=== PATIENT | female | born 1930 | race Caucasian/White ===

== ENCOUNTER 2016-09-25 16:17 | Inpatient (IN) | payer OTHER ==
[2016-09-25] MEDS ORDERED: TYLENOL PO ONE (16:26)
[2016-09-25 16:42] LABS: URINE SOURCE CLEAN CATCH
--- NOTE | 2016-09-25 16:53 | EKG Report ---
Test Performed on : 09/25/2016 4:38:16 PM Test Reason : hx a fib Blood Pressure : / mmHG Vent. Rate : 129 BPM Atrial Rate : 117 BPM P-R Int : 000 ms QRS Dur : 100 ms QT Int : 308 ms P-R-T Axes : 000 008 078 degrees QTc Int : 451 ms Atrial fibrillation. with rapid ventricular response. with premature ventricular or aberrantly conduc piter complexes. Abnormal ECG When compared with ECG of 12-DEC-2013 12:22, Atrial fibrillation. has replaced Sinus rhythm. Vent. rate has increased BY 72 BPM QRS duration has increased Nonspecific T wave abnormality now evident in Lateral leads Unconfirmed Result
--- NOTE | 2016-09-25 16:54 | ED EKG INTERP ---
EKG Interpretation - EKG Time of EKG reading by physician:: 16:38 EKG Read and Signed by:: Sonido Francis EKG Interpretation (*Must complete 3 of following elements*): Abnormal Rate: 129 Rhythm: A-fib with rvr QRS: normal ST Wave: non-specific ST changes Attestation - Scribe Verification/Attestation Scribe:: Ashish Drake Acting as Scribe for:: Sonido Francis Scribe documention review:: This chart was documented by a scribe and accurately reflects the service the provider performed and the decisions made by the provider. Physician Attestation - Physician Attestation I, the provider, attest to the following statement:: Sonido Francis Physician documentation Attestation:: This documentation recorded by the scribe accurately reflects the service I personally performed and the decisions made by me.
[2016-09-25 17:35] LABS: MANUAL DIFF NEEDED? NO
[2016-09-25 17:36] LABS: BILIRUBIN URINE NEGATIVE (NEGATIVE); BLOOD URINE NEGATIVE (NEGATIVE); CLARITY CLEAR (CLEAR); COLOR YELLOW; GLUCOSE URINE NEGATIVE (NEGATIVE); LEUKOCYTES URINE TRACE (NEGATIVE); NITRITE URINE NEGATIVE (NEGATIVE); PROTEIN URINE NEGATIVE (NEGATIVE); UROBILINOGEN URINE NORMAL
[2016-09-25 17:37] LABS: URINE WBC <10 /HPF (<10)
--- NOTE | 2016-09-25 17:37 | PROVIDER DOCUMENTATION ---
Addendum entered and electronically signed by Donita Lozano Scribe 09/26/16 12:36 : Progress - REASSESSMENT Reassessment #1 Time Reassessed: 12:28 (Dr. Negro at bedside ) Status: unchanged (Dr. Negro called to bedside by nursing staff. Pt is being admitted for A fib with RVR and pneumonia. Pt is tachy. Pt is speaking in full sentences. PMD in route. Pt's O2 sat is above 90. Pt's family expressing complaints and is requesting antibiotics. Dr. Negro explains Dr. Sanchez is on his way to see the Pt.) Original Note: HPI-General Adult - General Chief Complaint: General Adult Stated Complaint: fever Time Seen by Provider: 09/25/16 17:13 Source: patient Allergies/Adverse Reactions: Patient Allergies Allergy/AdvReac Type Severity Reaction Status Date / Time [id number] Reductase Allergy Intermediate RASH Verified 09/25/16 17:34 Inhibitor amlodipine besylate * Allergy Unknown Verified 09/25/16 17:34 [From Norvasc] nifedipine [From Procardia] Allergy Unknown Verified 09/25/16 17:34 Home Medications: Home Medication List Medication Instructions Recorded Confirmed Last Taken Type Alprazolam [Alprazolam ER] 0.5 mg PO QHS PRN 12/11/13 06/04/15 06/04/15 History Clonidine [Catapres] 0.25 mg PO TID PRN 06/04/15 06/04/15 06/04/15 History Levothyroxine [Synthroid] 50 mcg 09/25/16 Unknown History Metoprolol [Lopressor] 25 mg PO DAILY 09/25/16 09/25/16 Unknown History Spironolactone 09/25/16 Unknown History - History of Present Illness -Gen Adult Nature of Presenting Problems: Pt. is 86 yof that presents with c/o fever. Pt. reports symptoms for two weeks and states she has seen Dr. Sanchez her PCP but never got any results from him. Pt. reports she is not feeling well and reports she is not SOB and not coughing. Pt. denies any other symptoms. Location of Pain/Injury: reports: generalized. denies: head, face, mouth, neck , chest, upper extremity, hand(s), abdomen, back, pelvis, genitalia, lower extremity, feet, upper body, lower body Pain Radiation: reports: no radiation Quality of Pain: reports: aching. denies: burning, cramping, dull, fullness, indigestion, pressure, sharp, stabbing, tearing, throbbing, tightness Severity: reports: mild. denies: moderate, severe Onset/Duration: reports: gradual, 2 days ago Timing: reports: still present, constant. denies: improving, gone now, resolved prior to arrival, intermittent, changing over time, getting worse Context/Activities at Onset: reports: none. denies: recent emotional stress, recent physical stress, recent trauma history, possible bad food, cold exposure , out of country travel Modifying Factors: improves with: nothing Associated Symptoms: reports: fatigue, fever/chills, headaches, malaise, muscle aches. denies: anxiety, arm pain, back/neck pain, chest pain, constipation, cough, diaphoresis, diarrhea, dizziness, EENT symptoms, genitourinary problems, heartburn, joint pain, loss of appetite, sinus congestion/drainage, nausea, rash , seizure, shortness of breath, sensory/motor loss, pain with inspiration, swelling/mass in abdomen, syncope, vomiting, weakness, trouble walking Similar Symptoms Previously?: Yes Recently seen or treated by another doctor?: Yes Review of Systems - Adult - REVIEW OF SYSTEMS - ADULT Constitutional: reports: see HPI, chills, fever, fatique Eyes: reports: see HPI. denies: discharge, blurred vision, double vision Ears, Nose, Mouth & Throat: reports: see HPI. denies: ear pain, hearing loss, nose pain, loose teeth, mouth/dental pain, throat pain, throat swelling Cardiovascular: reports: see HPI, irregular heart rate. denies: chest pain, orthopnea, syncope Respiratory: reports: see HPI. denies: cough, dyspnea on exertion, pleurisy, shortness of breath, wheezing Gastrointestinal: reports: see HPI. denies: abdominal pain, hematemesis, diarrhea, nausea, vomiting Genitourinary: reports: see HPI. denies: dysuria, discharge, hematuria, hesitency, urgency Musculoskeletal: reports: see HPI. denies: bone pain, back pain, joint pain, muscle aches, neck pain Integumentary: reports: see HPI. denies: hives, itching, rash, skin thickening Neurological: reports: see HPI. denies: ataxia, headache/migraines, numbness, paresthesia, seizure, tremors Psychiatric: reports: see HPI. denies: anxiety, depression, emotional problems , insomnia, panic attacks, suicidal thoughts Past History - Adult - PAST MEDICAL HISTORY-ADULT Review of Records: reports: Old Records Reviewed, Nursing Assessment Review, Medications Reviewed, Social history reviewed & non-contributory. - IMMUNIZATION STATUS Childhood Immunizations: See Nurse Assessment Flu Vaccine: See Nurse Assessment - FAMILY HISTORY Family History: reviewed, not pertinent - SOCIAL HISTORY Smoking: non-smoker Physical Exam-General - PHYSICAL EXAM-ADULT Initial Vital Signs Reviewed: Yes - CONSTITUTIONAL General Appearance: alert, moderate distress, obese. negative: thin, anxious, lethargic, slow to respond, obtunded, combative - EYES Eyes: PERRL/EOMI, pink conjunctivae. negative: conjuctival exudate, scleral icterus, subconjunctival hemorrhage - HEAD, EARS, NOSE, MOUTH & THROAT HENMT: normocephalic/atraumatic, moist mucous membranes. negative: angioedema, frontal tenderness, maxillary tenderness - NECK Neck: non-tender, full range of motion, supple, normal inspection. negative: lymphadenopathy, trachial deviation, thyromegaly - RESPIRATORY Respiratory: lungs clear, normal breath sounds. negative: crackles, rales, rhonchi, stridor, wheezing - CARDIOVASCULAR Cardiovascular: no edema, no JVD, no murmur, tachycardia, irregularly irregular . negative: bradycardia, extra beats, friction rub - CHEST (BREASTS) Chest/Breast: deferred - GASTROINTESTINAL (ABDOMEN) Abdominal Exam: normal bowel sounds, non tender, soft. negative: distended, guarding, rigid, rebound, tenderness, hernia, mass - GENITOURINARY Female Genitalia/Pelvic Exam: deferred Rectal Exam: deferred Hemoccult Exam: deferred - LYMPHATIC Lymphatic: no adenopathy. negative: axilla node tender, cervical node tenderness - MUSCULOSKELETAL Back Exam: normal inspection, no CVA tenderness, no vertebral tenderness. negative: ecchymosis, swelling, vertebral tenderness Extremity: normal range of motion, non-tender, normal inspection. negative: deformity, erythema, inflammation, swelling, tenderness Peripheral Pulses: radial (R): 2+, radial (L): 2+ - SKIN Integumentary: normal color, normal turgor, warm/dry. negative: cyanosis, diaphoresis, ecchymosis, erythema, jaundice, mottled, pallor, petechiae, purpura , rash, swelling, tenderness - NEUROLOGIC Neurologic: grossly normal, no motor/sensory deficits. negative: aphasia, facial droop, focal weakness, motor weakness, sensory deficit - PSYCHIATRIC Psych/Mental Status: normal mood/affect, normal thought content, normal thought process, oriented x 3. negative: anxious, paranoid, tearful Progress - PLAN OF CARE/RESULTS Progress/Plan/Lab Results: Discussed results and plan of care with patient. Patient agrees with plan and verbalizes understanding. Vital Signs Temp Pulse Resp BP Pulse Ox 09/25/16 16:18 101.4 F H 129 H 19 165/87 95 Yqscxgp-[id number]-Cbl Reductase Inhibitor Allergy (Intermediate, Verified 09/25/16 17: 34) RASH amlodipine besylate * [From Norvasc] Allergy (Verified 09/25/16 17:34) Unknown nifedipine [From Procardia] Allergy (Verified 09/25/16 17:34) Unknown Alprazolam [Alprazolam ER] 0.5 mg PO QHS PRN 12/11/13 Clonidine [Catapres] 0.25 mg PO TID PRN 06/04/15 Levothyroxine [Synthroid] 50 mcg 09/25/16 Metoprolol [Lopressor] 25 mg PO DAILY 09/25/16 Spironolactone 09/25/16 Laboratory 09/25/16 09/25/16 09/25/16 17:25 17:25 17:25 WBC 6.24 RBC 3.85 L Hgb 12.1 Hct 35.9 L MCV 93.2 MCH 31.4 H MCHC 33.7 RDW Std Deviation 12.9 Plt Count 197 MPV 9.6 Immature Gran % (Auto) 0.3 Neut % (Auto) 67.2 Lymph % (Auto) 18.8 L [place] % (Auto) 13.0 H Eos % (Auto) 0.5 Baso % (Auto) 0.2 Immature Gran # (Auto) 0.02 Neut # (Auto) 4.20 Lymph # (Auto) 1.17 L [place] # (Auto) 0.81 H Eos # (Auto) 0.03 Baso # (Auto) 0.01 Sodium Potassium Chloride Carbon Dioxide Anion Gap BUN Creatinine Estimated GFR/1.73 m2 BUN/Creatinine Ratio Glucose Calculated Osmolality Calcium Total Bilirubin AST ALT Alkaline Phosphatase Troponin T < 0.010 Total Protein Albumin Globulin Albumin/Globulin Ratio Plasma Lactate 1.0 Urine Source Urine Color Urine Clarity Urine pH Ur Specific [place] Urine Protein Urine Ketones Urine Blood Urine Nitrite Urine Bilirubin Urine Urobilinogen Urine Microscopic RBC Urine WBC Urine Microscopic WBC Ur Epithelial Cells Urine Crystals Urine Bacteria Urine Casts Urine Yeast Urine Glucose Influenza A (Rapid) Influenza B (Rapid) 09/25/16 09/25/16 09/25/16 17:25 16:30 16:30 WBC RBC Hgb Hct MCV MCH MCHC RDW Std Deviation Plt Count MPV Immature Gran % (Auto) Neut % (Auto) Lymph % (Auto) [place] % (Auto) Eos % (Auto) Baso % (Auto) Immature Gran # (Auto) Neut # (Auto) Lymph # (Auto) [place] # (Auto) Eos # (Auto) Baso # (Auto) Sodium 124 L Potassium 4.2 Chloride 89 L Carbon Dioxide 25 Anion Gap 10 BUN 8 Creatinine 0.8 Estimated GFR/1.73 m2 > 60 BUN/Creatinine Ratio 10 Glucose 137 H Calculated Osmolality 250 Calcium 9.2 Total Bilirubin 1.80 H AST 18 ALT 11 Alkaline Phosphatase 40 Troponin T Total Protein 6.0 L Albumin 3.9 Globulin 2.0 Albumin/Globulin Ratio 2.0 Plasma Lactate Urine Source CLEAN CATCH Urine Color YELLOW Urine Clarity CLEAR Urine pH 7.0 Ur Specific [place] 1.000 Urine Protein NEGATIVE Urine Ketones NEGATIVE Urine Blood NEGATIVE Urine Nitrite NEGATIVE Urine Bilirubin NEGATIVE Urine Urobilinogen NORMAL Urine Microscopic RBC Not Reportable Urine WBC TRACE A Urine Microscopic WBC <10 Ur Epithelial Cells <10 Urine Crystals NONE SEEN Urine Bacteria 1+ Urine Casts NONE SEEN Urine Yeast NONE SEEN Urine Glucose NEGATIVE Influenza A (Rapid) NEGATIVE Influenza B (Rapid) NEGATIVE Orders Category Date Time Status Saline Loc NOW Care 09/25/16 17:12 Active CHEST-2 VIEWS [RAD] Stat Exams 09/25/16 17:12 Taken BLOOD CULTURE [BLDCUL] Stat Lab 09/25/16 17:13 Ordered CBC WITH ELECTRONIC DIFF [HEME] Stat Lab 09/25/16 17:25 Completed COMPREHENSIVE METABOLIC PANEL [CHEM] Stat Lab 09/25/16 17:25 Completed Flu [INFLUENZA SCREEN PL] Stat Lab 09/25/16 16:30 Completed LACTATE, PLASMA [CHEM] Stat Lab 09/25/16 17:25 Completed TROPONIN T Stat Lab 09/25/16 17:[address] W/POSS RFLX CULT [URINALYSIS] Stat Lab 09/25/16 16:30 Completed URINE CULTURE [RM] Routine Lab 09/25/16 17:39 Ordered Acetaminophen [Tylenol] Med 09/25/16 16:26 Discontinued 1,000 mg PO NOW ONE CefTRIAXONE 1 GM/NS [Rocephin 1 gm/Ns] 50 ml Med 09/25/16 18:53 Active IV NOW EKG [EKG] Stat Ther 09/25/16 16:25 Draft Laboratory Tests 09/25/16 09/25/16 09/25/16 16:30 16:30 17:25 WBC RBC Hgb Hct MCV MCH MCHC RDW Std Deviation Plt Count MPV Immature Gran % (Auto) Neut % (Auto) Lymph % (Auto) [place] % (Auto) Eos % (Auto) Baso % (Auto) Immature Gran # (Auto) Neut # (Auto) Lymph # (Auto) [place] # (Auto) Eos # (Auto) Baso # (Auto) Sodium 124 L Potassium 4.2 Chloride 89 L Carbon Dioxide 25 Anion Gap 10 BUN 8 Creatinine 0.8 Estimated GFR/1.73 m2 > 60 BUN/Creatinine Ratio 10 Glucose 137 H Calculated Osmolality 250 Calcium 9.2 Total Bilirubin 1.80 H AST 18 ALT 11 Alkaline Phosphatase 40 Troponin T Total Protein 6.0 L Albumin 3.9 Globulin 2.0 Albumin/Globulin Ratio 2.0 Plasma Lactate Urine Source CLEAN CATCH Urine Color YELLOW Urine Clarity CLEAR Urine pH 7.0 Ur Specific [place] 1.000 Urine Protein NEGATIVE Urine Ketones NEGATIVE Urine Blood NEGATIVE Urine Nitrite NEGATIVE Urine Bilirubin NEGATIVE Urine Urobilinogen NORMAL Urine Microscopic RBC Not Reportable Urine WBC TRACE A Urine Microscopic WBC <10 Ur Epithelial Cells <10 Urine Crystals NONE SEEN Urine Bacteria 1+ Urine Casts NONE SEEN Urine Yeast NONE SEEN Urine Glucose NEGATIVE Influenza A (Rapid) NEGATIVE Influenza B (Rapid) NEGATIVE 09/25/16 09/25/16 09/25/16 17:25 17:25 17:25 WBC 6.24 RBC 3.85 L Hgb 12.1 Hct 35.9 L MCV 93.2 MCH 31.4 H MCHC 33.7 RDW Std Deviation 12.9 Plt Count 197 MPV 9.6 Immature Gran % (Auto) 0.3 Neut % (Auto) 67.2 Lymph % (Auto) 18.8 L [place] % (Auto) 13.0 H Eos % (Auto) 0.5 Baso % (Auto) 0.2 Immature Gran # (Auto) 0.02 Neut # (Auto) 4.20 Lymph # (Auto) 1.17 L [place] # (Auto) 0.81 H Eos # (Auto) 0.03 Baso # (Auto) 0.01 Sodium Potassium Chloride Carbon Dioxide Anion Gap BUN Creatinine Estimated GFR/1.73 m2 BUN/Creatinine Ratio Glucose Calculated Osmolality Calcium Total Bilirubin AST ALT Alkaline Phosphatase Troponin T < 0.010 Total Protein Albumin Globulin Albumin/Globulin Ratio Plasma Lactate 1.0 Urine Source Urine Color Urine Clarity Urine pH Ur Specific [place] Urine Protein Urine Ketones Urine Blood Urine Nitrite Urine Bilirubin Urine Urobilinogen Urine Microscopic RBC Urine WBC Urine Microscopic WBC Ur Epithelial Cells Urine Crystals Urine Bacteria Urine Casts Urine Yeast Urine Glucose Influenza A (Rapid) Influenza B (Rapid) - XRAY 1 XRAY Study: Chest XRAY Interpretation: Pneumonia (Tito) - CONSULTS/PCP/HOSPITALIST Notification #1 *Consult/PCP/Hospitalist*: Dr. Zabala Time Discussed: 19:01 Reason/Comments: Admission Consult Disposition: Admit Departure - Departure Time of Disposition Order: 18:58 DIAGNOSIS: Hyponatremia, Atrial fibrillation with RVR Pneumonia Qualifiers: Pneumonia type: due to unspecified organism Laterality: bilateral Lung location : unspecified part of lung Qualified Code(s): J18.9 - Pneumonia, unspecified organism Fever Qualifiers: Fever type: unspecified Qualified Code(s): R50.9 - Fever, unspecified Disposition: ADMITTED INPATIENT 09 Certified Medical Emergency: Emergent Condition: Stable Attestation - Physician/ DAMION Attestation Patient care was provided by Advanced Practice Provider:: Yes Advanced Practice Provider:: Dilma Reyez Advanced Practice Provider documentation review:: The Mid-level provider documentation, treatment plan and medical decision making was reviewed by the physician who agrees with all treatment and medical decision making by the MLP.
[2016-09-25 17:38] LABS: URINE CAST NONE SEEN /LPF; URINE CRYSTAL NONE SEEN /HPF; URINE CULTURE PL NEEDED? YES; URINE EPITHELIAL CELLS <10 /HPF (<10)
[2016-09-25 17:46] LABS: BASO% 0.2 % (0.0-0.8); EOS# 0.03 X1000 (0.0-0.7); EOS% 0.5 % (0.0-10.0); HEMATOCRIT 35.9 % (37.0-47.0); HEMOGLOBIN 12.1 g/dL (12.0-16.0); IMM GRAN# 0.02 X1000 (0.0-0.04); IMM GRAN% 0.3 % (0.0-0.5); LYMPH# 1.17 X1000 (1.2-3.4); LYMPH% 18.8 % (20.5-51.1); MCH 31.4 PG (27-31); MCHC 33.7 g/dL (33-37); MCV 93.2 FL (81-99); MONO# 0.81 X1000 (0.11-0.59); MPV 9.6 FL (7.4-10.4); NEUT% 67.2 % (42.2-75.2); PLT 197 X1000 (130-400); RBC 3.85 XMIL (4.2-5.4)
[2016-09-25 18:14] LABS: AGAP 10; ALBUMIN 3.9 g/dL (3.5-5.0); ALKALINE PHOSPHATASE 40 U/L (32-104); BUN 8 mg/dL (8-22); CALCIUM 9.2 mg/dL (8.8-10.2); CHLORIDE 89 mmol/L (98-107); COSMO 250; GOT 18 U/L (10-30); GPT 11 U/L (10-36); POTASSIUM 4.2 mmol/L (3.5-5.1); SODIUM 124 mmol/L (136-145); TCO2 25 mmol/L (25-35)
[2016-09-25] MEDS ORDERED: ROCEPHIN 1 GM/NS 50 ML IV ONE (18:53)
[2016-09-25] MEDS ORDERED: LOPRESSOR IV ONE (19:01)
[2016-09-25] MEDS ORDERED: ZITHROMAX 500 MG/NS 250 ML IV ONE (19:02)
[2016-09-25] MEDS ORDERED: CATAPRES PO PRN (20:01)
[2016-09-25] MEDS: NS 1,000 ML IV SCH (20:27)
[2016-09-26] MEDS ORDERED: TYLENOL ONE ×3 (00:29→18:38)
[2016-09-26] MEDS: TYLENOL PO PRN ×2 (00:32→06:32)
[2016-09-26] MEDS ORDERED: NS 1,000 ML ONE ×2 (04:15→12:27)
[2016-09-26] MEDS: NS 1,000 ML IV SCH ×3 (04:18→21:23)
--- NOTE | 2016-09-26 08:50 | Diag Imaging Result Document ---
PROCEDURE NAME: CHEST-2 VIEWS - 09/25/2016 CHEST, TWO VIEWS: COMPARISON: 12/11/2013. INDICATION: Fever. FINDINGS: There is cardiomegaly. There are prominent markings at both lung bases, right greater than left, with bilateral small pleural effusions. The pulmonary vasculature is not particularly congested. IMPRESSION: New bibasilar infiltrates, right greater than left, and small bilateral effusions.
[2016-09-26] MEDS: LOPRESSOR PO SCH ×2 (09:00→12:09)
[2016-09-26] MEDS: SYNTHROID PO SCH (09:30)
[2016-09-26] MEDS ORDERED: LOPRESSOR ONE (12:09)
[2016-09-26] MEDS ORDERED: CARDIZEM 100 MG/NS 100 ML IV SCH (13:45)
[2016-09-26 13:59] LABS: HEMATOCRIT 37.1 % (37.0-47.0); HEMOGLOBIN 12.5 g/dL (12.0-16.0); MCH 31.7 PG (27-31); MCHC 33.7 g/dL (33-37); MCV 94.2 FL (81-99); MPV 9.5 FL (7.4-10.4); RBC 3.94 XMIL (4.2-5.4)
[2016-09-26 14:19] LABS: AGAP 10; ALBUMIN 3.4 g/dL (3.5-5.0); ALKALINE PHOSPHATASE 38 U/L (32-104); BUN 7 mg/dL (8-22); CALCIUM 8.5 mg/dL (8.8-10.2); CHLORIDE 97 mmol/L (98-107); COSMO 261; GOT 17 U/L (10-30); GPT 10 U/L (10-36); MAGNESIUM 1.8 mg/dL (1.5-2.7); SODIUM 130 mmol/L (136-145); TCO2 24 mmol/L (25-35)
[2016-09-26] MEDS ORDERED: CARDIZEM 100 MG/NS 100 ML ONE (15:36)
[2016-09-26] MEDS ORDERED: DUONEB (A & A) ONE (18:10)
[2016-09-26] MEDS ORDERED: ROCEPHIN 1 GM/NS 50 ML ONE (18:28)
[2016-09-26] MEDS: ROCEPHIN 1 GM/NS 50 ML IV SCH (18:54)
[2016-09-26] MEDS: DUONEB (A & A) INH PRN (20:30)
[2016-09-26] MEDS: ZITHROMAX 500 MG/NS 250 ML IV SCH (21:24)
[2016-09-27] MEDS: XANAX PO PRN ×3 (01:11→21:30)
[2016-09-27] MEDS: DUONEB (A & A) INH PRN ×3 (01:35→21:26)
[2016-09-27] MEDS: NS 1,000 ML IV SCH (06:23)
[2016-09-27] MEDS: SYNTHROID PO SCH (06:38)
[2016-09-27] MEDS ORDERED: NS 1,000 ML IV SCH (08:04)
[2016-09-27] MEDS: TYLENOL PO PRN ×2 (08:31→15:14)
[2016-09-27] MEDS ORDERED: CARDIZEM PO SCH (09:00)
[2016-09-27 09:04] LABS: HEMATOCRIT 33.3 % (37.0-47.0); MCH 31.6 PG (27-31); MCV 95.7 FL (81-99); MPV 9.8 FL (7.4-10.4); RBC 3.48 XMIL (4.2-5.4)
[2016-09-27 09:15] LABS: AGAP 10; ALBUMIN 3.2 g/dL (3.5-5.0); ALKALINE PHOSPHATASE 33 U/L (32-104); BUN 7 mg/dL (8-22); CALCIUM 7.8 mg/dL (8.8-10.2); CHLORIDE 99 mmol/L (98-107); COSMO 262; GOT 15 U/L (10-30); GPT 9 U/L (10-36); MAGNESIUM 1.9 mg/dL (1.5-2.7); POTASSIUM 3.6 mmol/L (3.5-5.1); SODIUM 131 mmol/L (136-145); TCO2 22 mmol/L (25-35); TOTAL PROTEIN 5.7 g/dL (6.3-8.3)
[2016-09-27] MEDS: TESSALON PO PRN ×2 (09:48→20:00)
[2016-09-27] MEDS ORDERED: CHLORASEPTIC SPRAY MT PRN (09:51)
--- NOTE | 2016-09-27 10:29 | PROGRESS NOTE ---
DATE: 09/27/2016 SUBJECTIVE: The patient did very well last night on Cardizem. Her blood pressures continued to improve. Currently Ms. Valdez has no complaints. States that she is chilly but the blankets on her bed make her feel much better. OBJECTIVE: Vital signs: Temperature 96 degrees, pulse currently 89-100, respiratory 16, BP currently 89/55 to 110/52. General: The patient is an elderly female who is currently in no respiratory distress. She is having mild rhonchorous airway noise but no wheezing. Cardiovascular: Irregular rate but rate controlled. No murmurs. Chest: Decreased breath sounds but equal bilaterally. No apparent wheezing. Abdomen: Soft. Extremities: Moves all extremities. Neurologic: No changes. LABS: Currently pending. ASSESSMENT: 1. Atrial fibrillation with rapid ventricular response, currently improved to rate controlled. 2. Acute pneumonia. Continue Rocephin and azithromycin. 3. Hyponatremia. TSH is pending. Continue Synthroid. 4. Hypercholesterolemia. Patient unfortunately is unable to treat secondary to muscle aches from her HMG coenzyme reductase inhibitors. PLAN: We will continue to wean Cardizem as she is having some low blood pressures but per her heart rate is tremendously better. At this point we will stop her Cardizem drip. We will discuss with cardiology the use of p.o. Cardizem. Dr. Lam was notified of patient's admission yesterday but Dr. Kwong was on for consultations. Unfortunately, he apparently was unavailable for consultation yesterday. Dr. Myles will come by today and assist with her care. TIME SPENT: 35 minutes in total care.
--- NOTE | 2016-09-27 12:56 | HISTORY AND PHYSICAL ---
CHIEF COMPLAINT: Shortness of breath. HISTORY OF PRESENT ILLNESS: The patient is an 86-year-old female who came to the Emergency Department last night. The patient is short of breath and was coughing with congestion. They denied any knowledge of fevers or chills. They denied any sick contacts. ALLERGIES: Statins causing a rash. Norvasc and Procardia according to her daughter causing her blood pressure to increase. CURRENT MEDICATIONS: 1. Synthroid 50 mcg. 2. Catapres t.i.d. p.r.n. when the daughter feels like Ms. Valdez's blood pressure is elevated although she does not check it frequently. 3. Xanax ER 0.5 mg at bedtime p.r.n.. 4. Lopressor 25 mg daily when the daughter feels like Ms. Valdez needs it. 5. Spironolactone p.r.n. apparently as well. SOCIAL HISTORY: The patient lives at home. She does not smoke although she does have a long history of smoke exposure. PAST MEDICAL HISTORY: Known history of atrial fibrillation, hyponatremia, hypothyroidism, hypertension, chronic anxiety, history of dyslipidemia although not currently being treated, and known coronary artery disease. 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 REVIEW OF SYSTEMS: Difficult to obtain from Ms. Valdez although she does complain of some shortness of breath and some coughing. She states that she has had some palpitations. She denies any chest pain. Denies true fevers or chills. Denies any production to her cough. Denies any GI or issues. PHYSICAL EXAMINATION: VITAL SIGNS: Temp 98.2, pulse 120 to 150, respiratory 20 to 30, and BP current 170/110 but has been as low as 90/44. Saturation 93% on 2 L, currently the daughter increased her to 7 L and she is sating 94%-95%. LABORATORY DATA: CBC is essentially normal. CMP with a sodium of 124, glucose of 137, and total bili of 1.8. First set of cardiac enzymes are negative. ASSESSMENT: 1. Atrial fibrillation with rapid ventricular response. 2. Hypoxemia. 3. Hyponatremia. 4. Hyperbilirubinemia. 5. 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 6. Chronic anxiety. 7. Hypercholesterolemia. 8. Hypothyroidism. 9. Cough. 10.New bibasilar infiltrates, right greater than left. PLAN: We will continue to treat her pneumonia with Rocephin and azithromycin. I had a very lengthy discussion with the daughter regarding the perils of giving mom medication whenever the daughter decides to. This is continued in the E.R. and we are completely unclear as to what medications that Mr. Valdez's daughter has currently given her while she has been in the E.R.. It appears that she has given her a couple of doses of clonidine as well as Xanax. In addition, she has increased Mr. Valdez's oxygen to 7 L. I discussed with Ms. Valdez's daughter and granddaughter the perils of hyperoxygenation and its effect on breathing and CO2 retention in elderly patient's with COPD. Ms. Valdez's daughter appears quite recalcitrant to communication at this point. I offered to allow them to find a different physician and Ms. Valdez said no. The granddaughter did seem to start to understand the importance of the nursing staff knowing what medications was given but it does not appear that the daughter has agreed with this observation at this point. Discussed with Dr. Lam the addition of Cardizem. Discussed with the daughter as well as the granddaughter that although Procardia to their knowledge increased her blood pressure that it would be unlikely that Cardizem would do the same thing. Her heart rate is currently in the 140s to 150s and she has a very poor filling time and needs to lower her heart rate as well as her blood pressure before she has a stroke or heart attack. Again, I discussed this with all three of them in the room and finally the daughter acquiesced to allow us to attempt Cardizem. However, she said that "I better be right". At that point, I again discussed with the daughter that she is more than welcome to a different treating physician that although I am not God there is no possibility that I can be right 100% of the time that this is the current and expected standard of care.
[2016-09-27] MEDS: ROBITUSSIN-DM PO PRN ×2 (13:02→18:03)
[2016-09-27] MEDS ORDERED: LANOXIN IV ONE (15:23)
--- NOTE | 2016-09-27 15:53 | CONSULTATION ---
DATE OF CONSULTATION: 09/27/2016 INDICATION: Atrial fibrillation. HISTORY OF PRESENT ILLNESS: Ms. Valdez is a 86-year-old white female with a history of chronic atrial fibrillation normally managed by Dr. Lam. Apparently the patient has had multiple conversations with Dr. Lam in the past and has refused anticoagulation despite an elevated risk of stroke. She presented for evaluation of shortness of breath as well as fevers and chills. This has been going on for the last couple of days. She was febrile upon presentation and chest x-ray is suggesting bibasilar infiltrates suggesting possible pneumonia. The patient has had periodic episodes of heart racing and has episodes of atrial fibrillation with rapid ventricular response. She originally was on a diltiazem infusion and was switched over to oral diltiazem today. PAST MEDICAL HISTORY: 1. Significant for atrial fibrillation. 2. Hyponatremia. 3. Hypothyroidism. 4. Hypertension. 5. Anxiety. 6. Dyslipidemia. 7. Coronary artery disease. SOCIAL HISTORY: She lives at home. No current tobacco use. No alcohol use. FAMILY HISTORY: Significant for hypertension. REVIEW OF SYSTEMS: A 10 system review of systems is negative except for those things mentioned in HPI. PHYSICAL EXAMINATION: Vital Signs: She is afebrile presently but was 101.4 on presentation on the . Heart rate is 92, blood pressure 115/51. General: She is in no acute distress. HEENT: Oropharynx is moist. Poor dentition. Eye examination shows pink conjunctivae, white sclerae. Neck: Examination shows no obvious thyromegaly or thyroid tenderness. Cardiovascular: She sounds to be in a irregularly irregular rhythm that is tachycardic, this corresponds to her atrial fibrillation with rapid ventricular response presently on the monitor. She has no lower extremity edema. Chest: Notable for some mild rales in the bilateral bases. No increased work of breathing. Abdomen: Soft, nontender, nondistended. No obvious organomegaly. Skin: Warm and dry throughout without any rashes. Neurological: She is moving all extremities well. Cranial nerves 2-12 are intact without any sensation deficits. Psychiatric: Alert and oriented, and pleasant. She has normal mood and affect. PERTINENT DATA: White count 7.8, hematocrit 33, platelet count 163. Sodium 131 , potassium 3.6, BUN 7, creatinine 0.8. Her cardiac enzymes were negative on presentation, lactate was 1 on presentation, her TSH is 1.61. She had a chest x-ray showing new bibasilar infiltrates right greater and left with small bilateral pleural effusions. EKG on presentation shows atrial fibrillation with rapid ventricular response rate of 129 beats per minute. ASSESSMENT: 1. Atrial fibrillation with rapid ventricular response. 2. Pneumonia. PLAN: We will add digoxin at 250 mcg IV now 125 mcg p.o. daily. We will continue her on diltiazem presently. She is continuing to receive antibiotics. We will check an echocardiogram. ADDENDUM: I was notified by the nurse that the patient refused the dose of digoxin IV as ordered. I went back in the room to make myself available for questions to the patient and family to ensure they understand the reasoning behind the medication. I was told to leave the room by her daughter as I was increasing her mother's anxiety. I again offered to answer any questions, however was met by starkey looks from the daughter and silence from the patient. At this point I left the room and told the nurse to let me know if I can do anything. After that it was also discovered that the daughter was medicating the patient with xanax without notifying the staff. This is likely contributing to the relative hypotension in the patient. MTDD
[2016-09-27] MEDS: CARDIZEM 100 MG/NS 100 ML IV SCH (16:59)
[2016-09-27] MEDS: MYLICON PO PRN (17:21)
[2016-09-27] MEDS: ZITHROMAX 500 MG/NS 250 ML IV SCH (20:49)
[2016-09-27] MEDS: ROCEPHIN 1 GM/NS 50 ML IV SCH (21:21)
[2016-09-28] MEDS: XANAX PO PRN ×4 (02:30→22:35)
[2016-09-28] MEDS: TYLENOL PO PRN ×4 (02:30→22:35)
[2016-09-28] MEDS: DUONEB (A & A) INH PRN ×4 (02:46→23:10)
[2016-09-28] MEDS: MYLICON PO PRN (04:10)
[2016-09-28] MEDS: SYNTHROID PO SCH (06:09)
[2016-09-28] MEDS: CARDIZEM 100 MG/NS 100 ML IV SCH (08:21)
[2016-09-28] MEDS ORDERED: ALDACTONE PO SCH (09:00)
[2016-09-28] MEDS: LANOXIN PO SCH (09:55)
[2016-09-28] MEDS: ROBITUSSIN-DM PO PRN (11:14)
--- NOTE | 2016-09-28 13:55 | Diag Imaging Result Document ---
PROCEDURE NAME: CHEST-PORTABLE - 09/28/2016 PORTABLE CHEST: COMPARISON: 09/25/2016. FINDINGS: There is apparent pulmonary edema which is increased compared to the previous exam, particularly at the lower lungs. There is no pneumothorax identified. The heart borders are partially obscured, but there is apparent mild cardiomegaly. IMPRESSION: Apparent pulmonary edema.
--- NOTE | 2016-09-28 14:23 | PROGRESS NOTE ---
DATE: 09/28/2016 SUBJECTIVE: The patient has no complaints. She seems to be much less anxious. Breathing is somewhat improved. OBJECTIVE: Vital Signs: Heart rate has been staying relatively well controlled in the 90s to 100s. Respiratory rate is recorded in the 30s, and I think she is more in the 20s at this point. Saturation is 95% on 5 liters. Cardiovascular: Irregular irregular. Pulmonary: Diminished at the bases. Gastrointestinal: Soft, nontender, nondistended. Bowel sounds are positive. LABORATORY DATA: Hemoglobin and hematocrit of 11 and 33. Sodium 131. Serologies negative. Chest x-ray pending. PROBLEM LIST: 1. Atrial fibrillation with rapid ventricular response. We will try again to transition her off of oral Cardizem. We had some issues yesterday because the patient was refusing digoxin and would not speak to the glass fitter. It is just a very odd situation, and yet they were giving her extra doses of Xanax at the bedside despite hypotension and being asked not to do that, a very difficult situation. She had to be placed back on digoxin and on IV Cardizem drip. We will transition again today. They seem to be in accordance with this plan. I am going to give digoxin, and if her blood pressure tolerates, Cardizem at 30 t.i.d. She does meet criteria for long-term anticoagulation based on age and gender and medical issues; however, I am very leery of doing that. She is very weak and high risk for falls, but I will at least start aspirin and low-dose Lovenox, and we will follow. 2. Pneumonia. She is on Rocephin and Zithromax. This is day 3. We will repeat her chest x-ray and follow. She is on p.r.n. breathing treatments. DISPOSITION: Work on trying to get her off the drip today and then possibly to the floor tomorrow, and we will go from there.
--- NOTE | 2016-09-28 14:29 | ECHO REPORT ---
ORDER DATE: 09/28/2016 INDICATION FOR THE STUDY: Atrial fibrillation. FINDINGS: 1. The right atrium appears normal in size at 3.2 cm. 2. Mild to moderate tricuspid regurgitation. RV systolic pressure of 50. 3. Normal RV size and systolic function. 4. Trace pulmonic insufficiency. 5. Mild left atrial enlargement at 4.9 cm. 6. No mitral prolapse. Mild mitral regurgitation. 7. Normal LV size, end-diastolic dimension of 3.2. Mild left ventricular hypertrophy. Posterior and interventricular septal wall thickness 1.2 cm each. Normal LV systolic function. Estimated EF 55% to 60% with normal wall motion. 8. Aortic valve opens well. There is some sclerosis and calcification, primarily of the right coronary cusp. There is no stenosis. Trace insufficiency. The valve is trileaflet. 9. Aorta appears normal in visualized segments. 10. There is a pleural effusion present with no pericardial effusion. 11. The patient is in atrial fibrillation with rates in the 80s to low 100s.
[2016-09-28] MEDS: CARDIZEM PO SCH ×2 (16:45→16:56)
[2016-09-28] MEDS: ASPIRIN EC PO SCH (16:45)
[2016-09-28] MEDS: ZITHROMAX 500 MG/NS 250 ML IV SCH (20:34)
[2016-09-28] MEDS: ROCEPHIN 1 GM/NS 50 ML IV SCH (22:35)
[2016-09-29] MEDS: MYLICON PO PRN ×3 (03:28→14:03)
[2016-09-29] MEDS: ZOFRAN IV PRN ×2 (03:32→14:04)
[2016-09-29] MEDS: SYNTHROID PO SCH (06:19)
[2016-09-29 06:53] LABS: HEMATOCRIT 31.5 % (37.0-47.0); HEMOGLOBIN 9.6 g/dL (12.0-16.0); MCH 28.5 PG (27-31); MCHC 30.5 g/dL (33-37); MCV 93.5 FL (81-99); MPV 10.1 FL (7.4-10.4); RBC 3.37 XMIL (4.2-5.4)
[2016-09-29 07:02] LABS: AGAP 9; BUN 7 mg/dL (8-22); CALCIUM 8.3 mg/dL (8.8-10.2); CHLORIDE 98 mmol/L (98-107); COSMO 259; MAGNESIUM 1.8 mg/dL (1.5-2.7); POTASSIUM 3.8 mmol/L (3.5-5.1); SODIUM 129 mmol/L (136-145); TCO2 23 mmol/L (25-35)
[2016-09-29] MEDS: LANOXIN PO SCH (08:26)
[2016-09-29] MEDS: ASPIRIN EC PO SCH (08:26)
[2016-09-29] MEDS: CARDIZEM PO SCH (08:27)
[2016-09-29] MEDS: XANAX PO PRN (08:36)
[2016-09-29] MEDS: TYLENOL PO PRN ×2 (08:37→21:13)
--- NOTE | 2016-09-29 12:04 | PROGRESS NOTE ---
DATE: 09/29/2016 OBJECTIVE: Vital signs: Temperature 98.6, heart rate 107, respirations 26, blood pressure 179/91, O2 saturation is 97% on 5 L nasal oxygen. She does have some mild scattered rhonchi bilaterally to auscultation. Abdomen is soft. She complains of generalized abdominal discomfort. LABORATORY: Sodium 129, potassium 3.8, BUN 7, creatinine 0.6, glucose 131. Hemoglobin 9.6, hematocrit 31.5, white blood count 4900. Chest x-ray yesterday showed pulmonary edema. PLAN: Increase Cardizem to 180 mg CD 1 daily, and add IV Lasix and p.o. potassium.
[2016-09-29] MEDS: DUONEB (A & A) INH PRN (12:19)
[2016-09-29] MEDS: CARDIZEM CD PO SCH (14:03)
[2016-09-29] MEDS: LASIX IV SCH ×2 (14:03→21:01)
[2016-09-29] MEDS ORDERED: SAMSCA PO ONE (14:47)
[2016-09-29 15:35] LABS: AGAP 10; BUN 6 mg/dL (8-22); CALCIUM 8.7 mg/dL (8.8-10.2); CHLORIDE 96 mmol/L (98-107); COSMO 260; POTASSIUM 3.8 mmol/L (3.5-5.1); SODIUM 130 mmol/L (136-145); TCO2 24 mmol/L (25-35)
[2016-09-29] MEDS: KLOR-CON PO SCH (21:01)
[2016-09-29] MEDS: ROCEPHIN 1 GM/NS 50 ML IV SCH (21:01)
[2016-09-29] MEDS: ZITHROMAX 500 MG/NS 250 ML IV SCH (21:27)
[2016-09-30] MEDS: SYNTHROID PO SCH (06:23)
[2016-09-30 06:30] LABS: AGAP 7; BUN 9 mg/dL (8-22); CALCIUM 8.8 mg/dL (8.8-10.2); CHLORIDE 102 mmol/L (98-107); COSMO 275; MAGNESIUM 1.8 mg/dL (1.5-2.7); POTASSIUM 3.8 mmol/L (3.5-5.1); SODIUM 138 mmol/L (136-145); TCO2 29 mmol/L (25-35)
--- NOTE | 2016-09-30 08:49 | PROGRESS NOTE ---
DATE: 09/30/2016 VITAL SIGNS: Temperature 98.1 degrees, heart rate 99, respirations 25, blood pressure 135/85. O2 saturation 95% on 4 L nasal oxygen. IMPRESSION: Patient seems to be stable with persistent atrial fibrillation. She is not on anticoagulants. This is apparently due to her noncompliance and fall risk. PLAN: Transfer to the floor today.
[2016-09-30] MEDS: LANOXIN PO SCH (08:58)
[2016-09-30] MEDS: CARDIZEM CD PO SCH (08:59)
[2016-09-30] MEDS: LASIX IV SCH ×2 (08:59→21:18)
[2016-09-30] MEDS: ASPIRIN EC PO SCH (08:59)
[2016-09-30] MEDS: KLOR-CON PO SCH ×2 (08:59→21:18)
[2016-09-30] MEDS: TYLENOL PO PRN (09:02)
[2016-09-30] MEDS: XANAX PO PRN ×2 (09:02→21:30)
[2016-09-30] MEDS: DUONEB (A & A) INH PRN (16:25)
[2016-09-30] MEDS ORDERED: NS 500 ML IV SCH (19:00)
[2016-09-30] MEDS: ROCEPHIN 1 GM/NS 50 ML IV SCH (21:18)
[2016-09-30] MEDS: MILK OF MAGNESIA PO PRN (21:30)
[2016-09-30] MEDS: ROBITUSSIN-DM PO PRN (21:30)
[2016-09-30] MEDS: ZITHROMAX 500 MG/NS 250 ML IV SCH (22:11)
[2016-10-01] MEDS: SYNTHROID PO SCH (06:21)
[2016-10-01] MEDS: DUONEB (A & A) INH PRN ×3 (07:56→15:30)
[2016-10-01] MEDS: LASIX IV SCH (09:07)
[2016-10-01] MEDS: LANOXIN PO SCH (09:07)
[2016-10-01] MEDS: MYLICON PO PRN (09:07)
[2016-10-01] MEDS: CARDIZEM CD PO SCH (09:07)
[2016-10-01] MEDS: ASPIRIN EC PO SCH (09:07)
[2016-10-01] MEDS: KLOR-CON PO SCH ×2 (09:07→22:06)
[2016-10-01] MEDS: MILK OF MAGNESIA PO PRN (12:30)
[2016-10-01] MEDS: XANAX PO PRN ×2 (13:49→22:06)
[2016-10-01] MEDS: TYLENOL PO PRN ×2 (13:49→22:06)
--- NOTE | 2016-10-01 17:19 | PROGRESS NOTE ---
DATE: 10/01/2016 SUBJECTIVE: The patient states she is feeling a little bit better. Still tired, fatigued, and weak. OBJECTIVE: Vital signs: Temperature 98 degrees, pulse 98-120, respiratory 14-18, BP 122/65, saturation 95% on 3 L. General: Patient is a frail-appearing, elderly female who is currently in no distress. She is lying in the bed, watching television. No family is in the room currently. HEENT: Normocephalic. Neck: Supple. Cardiovascular: Irregular rate. Irregular rhythm. Chest: Relatively clear. Abdomen: Soft. Extremities: Moves all extremities. LABS: CMP normal. ASSESSMENT: 1. Atrial fibrillation with rapid ventricular response. 2. Intentional medical noncompliance. 3. Hyponatremia, resolved. 4. Hyperglycemia. 5. Hyperbilirubinemia, resolved. 6. Hypoxemia, stable. 7. Pneumonia, improving. PLAN: We will continue patient's current medical regimen. She has a note at the bedside that her daughter is asking for her to be put back on Toprol given. Her hypoxemia we will attempt to increase Cardizem slightly as opposed to Toprol. Discussed with Ms. Valdez the perils of her daughter giving her medications while she is in the hospital, as well as causing her blood pressures to be low. This has been documented previously in my note, Dr. Zabala's note, Dr. Myles's note, as well as Dr. Reyez. Pneumonia, improved. We will change her over to Omnicef and azithromycin. We will stop her IV fluids. Change her over to p.o. Lasix. Begin looking for a rehab bed as it most likely will be necessary and hopefully we will be able to discharge home soon.
--- NOTE | 2016-10-01 18:14 | PROGRESS NOTE ---
DATE: 10/01/2016 CHIEF COMPLAINT: Irregular heartbeat, shortness of breath. SUBJECTIVE: Ms. Valdez is feeling much better. She is not having any chest pain or significant dyspnea. Her breathing has gotten much better. OBJECTIVE: Vital signs: Blood pressure is 122/65, temperature 98 degrees, pulse is about 105, respirations 18. General: She is awake, follows commands. HEENT: Unremarkable. Chest: Fairly clear to auscultation and percussion. Cardiovascular: Heart sounds are irregularly irregular. Abdomen: Slightly distended. She said that she is constipated. Bowel sounds are present. No masses. Extremities: Trace ankle edema. Neurologic: She moves all four extremities, follow commands. LABORATORY DATA: Sodium 138, potassium 3.8, chloride 102, carbon dioxide 29, BUN 9, creatinine 0.8. IMPRESSION: 1. Patient who presented with atrial fibrillation with rapid response. 2. Pulmonary edema, possible pneumonia. 3. Hyponatremia. 4. History of coronary heart disease. RECOMMENDATIONS: At this point in time, she was given Samsca yesterday and her sodium has normalized. I think we would probably continue all the other measures that have been instituted over the past few days including diltiazem, furosemide, and will monitor her course. We may suggest some Colace for her constipation. Thank you again for the opportunity to participate in her evaluation.
[2016-10-01] MEDS ORDERED: ZITHROMAX PO SCH (21:00)
[2016-10-01] MEDS: LASIX PO SCH (22:07)
[2016-10-01] MEDS: COLACE PO SCH (22:08)
[2016-10-01] MEDS: ROCEPHIN 1 GM/NS 50 ML IV SCH (22:08)
[2016-10-01] MEDS: OMNICEF PO SCH (22:08)
[2016-10-02] MEDS: SYNTHROID PO SCH (06:36)
[2016-10-02] MEDS ORDERED: CARDIZEM CD PO SCH (09:00)
[2016-10-02] MEDS: KLOR-CON PO SCH (09:30)
[2016-10-02] MEDS: COLACE PO SCH (09:31)
[2016-10-02] MEDS: OMNICEF PO SCH (09:31)
[2016-10-02] MEDS: LASIX PO SCH (09:31)
[2016-10-02] MEDS: ASPIRIN EC PO SCH (09:31)
[2016-10-02] MEDS: XANAX PO PRN ×2 (09:31→18:28)
[2016-10-02] MEDS: LANOXIN PO SCH (09:31)
--- NOTE | 2016-10-02 10:32 | DISCHARGE SUMMARY ---
ADMISSION DATE: 09/25/2016 DISCHARGE DATE: 10/02/2016 DIAGNOSES: 1. Atrial fibrillation with rapid ventricular response. Rate controlled. 2. Intentional medical noncompliance. 3. Hypoxemia resolved. 4. Hyponatremia resolved. 5. Hyperbilirubinemia, resolved. 6. 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 7. Chronic anxiety. 8. Hypothyroid. 9. History of coronary artery disease. 10. Pneumonia improving. DIAGNOSTICS: 1. A 09/25/2016 chest x-ray revealed new bibasilar infiltrates with right greater than left and small bilateral effusions. 2. A 09/28/2016 chest x-ray. Revealed apparent pulmonary edema, particularly in the lower lungs. No pneumothorax identified. 3. A 09/28/2016 echocardiogram. EF was 55-60% with normal wall motion. Normal systolic function with no mitral prolapse. Mild mitral regurgitation. Trace pulmonic insufficiency. Mild to moderate tricuspid regurgitation. Aortic valve has no stenosis. Trace insufficiency. The valve was trileaflet with some sclerosis and calcification primarily of the right coronary cusp. MICROBIOLOGY: 1. Blood cultures x2 revealed no growth after 5 days. 2. Urine culture revealed mixed berta. HOSPITAL COURSE: Ms. Valdez presented to the emergency room complaining of shortness of breath, cough and congestion. She was found to be in atrial fibrillation, RVR as well as having pneumonia. She was treated with IV Rocephin and azithromycin. Cardiology was consulted. It appears she was treated with Cardizem and metoprolol. After lengthy discussion with the daughter and granddaughter, a Cardizem drip was started it looks like. She was then transitioned over to p.o. Cardizem as well as p.o. digoxin. Heart rates have been in the 1980s to the low 100s with stable blood pressures. Electrolytes were followed and repleted as appropriate. She was diuresed and it looks like she is negative for about 7 L over the last 3 days. Her bilirubin did increase to 1.8 with normal AST, ALT and alkaline phosphatase. That was on the . On the , she was 0.8. Her white count remained within normal limits and she was afebrile throughout the hospitalization. During the hospitalization, the daughter was very hesitant to accept the care that was offered by the hospitalist as well as cardiology. In review of the notes from Dr. Sanchez, Dr. Reyez, Dr. Zabala and Dr. Myles, the daughter did give the patient Xanax as well as clonidine in the emergency room, as well as while she was in ICU despite multiple discussions with physicians on the perils of these medications. She also increased the patient's oxygen despite being warned of the perils of hyperoxygenation and its effect on breathing and CO2 retention in elderly patients with COPD. Evidently, the patient has a history of atrial fibrillation. The patient and the daughter have refused anticoagulation multiple times in the past. They continue to refuse this. They did refuse Cardizem and digoxin at first, then the daughter allowed the patient to have the medications which we are continuing. Now the daughter is asking the patient be placed on Toprol and Cardizem be discontinued. There was a discussion with the daughter per Dr. Sanchez of the perils of giving Toprol with her current respiratory status, and at present, we are continuing the Cardizem, in fact we have slightly increased the dose and she has good rate control with this. Throughout the hospitalization in ICU as well as the floor, the daughter has continued to give the patient Xanax at the bedside without notifying staff. It is felt this is contributing to the relative hypotension in the patient. We are unsure of any other medications that could possibly be given at the bedside. DISCHARGE PHYSICAL ASSESSMENT: Cardiovascular: Irregularly irregular rate and rhythm. S1 and S2 are appreciated. Pulmonary: Breath sounds are clear. No increased work of breathing noted. Gastrointestinal: Abdomen is soft, nontender, nondistended with bowel sounds in all 4 quadrants. Extremities: No clubbing, cyanosis, or edema. Pulses are palpable x4. Calves are nontender. Neurologic: She is alert and oriented. Discharge Vital Signs: Blood pressure is 140/76 with a heart rate of 80, respirations are 18, temperature is 97.8 oral with oxygen saturations of 95-97% on 2 L nasal cannula. DISCHARGE ACTIVITY: We will be per PT recommendations and facility policies. DISCHARGE DIET: Regular. DISCHARGE MEDICATIONS: 1. Tylenol 650 q.6 hours p.r.n. fever. 2. DuoNeb q.2 hours p.r.n. 3. DuoNeb q.4 hours. 4. Xanax 0.5 q.6 hours p.r.n. anxiety. 5. Enteric-coated aspirin 81 mg daily. 6. Zithromax 500 mg daily. 7. Tessalon Perles 3 times a day p.r.n. cough. 8. Omnicef 300 mg b.i.d. 9. Lanoxin 125 mcg daily. 10. Cardizem CD 240 daily. 11. Colace 200 mg b.i.d. 12. Lasix 20 mg b.i.d. 13. Milk of magnesia 30 mL daily p.r.n. constipation. 14. Chloraseptic throat spray as needed for dry mouth. 15. Klor-Con 10 mEq b.i.d. 16. Mylicon 80 mg 4 times a day as needed for dyspepsia. 17. Xanax 0.5 at bedtime. 18. Clonidine 0.25 three times a day. 19. The patient is to stop taking Cipro, metoprolol and spironolactone. DISPOSITION: She is being discharged to rehab via EMS transport in stable condition. TIME SPENT: This is a greater than 30 minute discharge from 9:00 to 9:40. Dictated by AVI Oneal for Adeel Sanchez MD
--- NOTE | 2016-10-02 12:32 | PROGRESS NOTE ---
DATE: 10/02/2016 SUBJECTIVE: Patient states she is feeling better. She is still tired, having difficulty ambulating, but denies any current chest pain, palpitations. OBJECTIVE: Vital Signs: Reviewed. Temperature 97.6, pulse 80, respiratory rate 10, BP 124/66. Saturation 97% on 2 L. General: The patient is an elderly female who currently is in no respiratory distress. She is awake, alert. Neck: Supple. CV: Irregular rhythm but rate controlled. Chest: Relatively clear. Abdomen: Soft. Extremities: Moves all extremities. LABS: No current labs today. ASSESSMENT: 1. Atrial fibrillation with rapid ventricular rate. 2. Intentional medical noncompliance due to her daughter. 3. Hyponatremia resolved. Sodium 138. 4. Hypocalcemia, improved. 5. Hyperglycemia, stable. 6. Pneumonia with hypoxemia, improving. PLAN: We will continue on Cardizem. We increased the dose yesterday to 240 daily. Her heart rate is much better controlled in the 80s to 90s. Blood pressure is stable 124/66. At this point patient is stable for rehab and can be discharged when bed available.
[2016-10-02 16:14] VITALS: BP 111/68
--- NOTE | 2016-10-03 08:29 | DISCHARGE SUMMARY ---
ADMISSION DATE: 09/25/2016 DISCHARGE DATE: 10/02/2016 DISCHARGE DIAGNOSIS: 1. Atrial fibrillation, rapid ventricular rate, rate controlled currently on Cardizem. 2. Chronic anxiety. 3. Chronic intentional medical noncompliance. 4. Hyponatremia resolved after Samsca. 5. Diabetes with hyperglycemia stable. 6. Hyperbilirubinemia resolved. 7. Pneumonia improving. 8. Hypoxemia improving. CONSULTATIONS: Cardiology. PROCEDURES: None. BRIEF HOSPITAL COURSE: Patient is an 86-year-old female who was admitted as noted on the HPI. Treated in usual fashion. She was placed on IV Cardizem which worked very well. On discharge, she was awake, alert. She was in no distress. She has been converted back to p.o. Cardizem 240 without any complications. The Toprol was held secondary to her pneumonia and hypoxemia, as well as the fact that her heart rate was controlled in the 80s and 90s. Blood pressure 124-133 systolic. Certainly if her heart rates continue to elevate, Toprol can be added back. She thankfully had an uneventful hospital course as noted, the throughout the dictations. DISPOSITION: The patient will be discharged to rehab. She will continue her current medications of Tessalon Perles p.r.n., Xanax 0.5 q.6h p.r.n., Synthroid 50 mcg daily, digoxin 125 mcg a day, diltiazem 240 CD daily, Lasix 20 b.i.d., potassium 10 b.i.d. She will continue Omnicef and Zithromax for the next 4 days. TIME SPENT ON DISCHARGE: Thirty-five minutes was spent in discharge planning.
== END 2016-10-02 20:12 | DRG 308 ==
LOC: P.ED 16:17 → P.EDIPHOLD 19:22 → P.ICU 09-26 18:55 → P.MEDSURG 09-30 09:54
PROVIDERS: ADMIT Family Medicine; ATTEND Family Medicine
DX: I48.1 Persistent atrial fibrillation (principal); J18.9 Pneumonia, unspecified organism; E11.65 Type 2 diabetes mellitus with hyperglycemia; E87.1 Hypo-osmolality and hyponatremia; I95.2 Hypotension due to drugs; Z99.81 Dependence on supplemental oxygen; R09.02 Hypoxemia; E83.51 Hypocalcemia; T42.4X1A Poisoning by benzodiazepines, accidental (unintentional), initial encounter; I25.10 Atherosclerotic heart disease of native coronary artery without angina pectoris; E78.00 Pure hypercholesterolemia, unspecified; E03.9 Hypothyroidism, unspecified; K59.00 Constipation, unspecified; R62.7 Adult failure to thrive; F41.9 Anxiety disorder, unspecified; Z91.14 Patient's other noncompliance with medication regimen; Z79.899 Other long term (current) drug therapy; Z91.81 History of falling; Z82.49 Family history of ischemic heart disease and other diseases of the circulatory system; T46.5X5A Adverse effect of other antihypertensive drugs, initial encounter
CPT/HCPCS: 36415; 71010; 71020; 80048; 80053; 81001; 82550; 83605; 83735; 84443; 84484; 85025; 85027; 87040; 87088; 87804; 93005; 93306; 94640; 94761; 94799; 96361; 96365; 96366; 96367; J0456; J0696; J1160; J1940; J2405; J7030; J7040; 99285-25